=== PATIENT | male | born 1940 | race Caucasian/White ===

== ENCOUNTER 2017-08-27 06:32 | Inpatient (IN) ==
[~2017-08-27 06:32] MED LIST: Vancomycin 1,000 MG, Sodium Chloride IRRigation 1,000 ML IR ONE
[2017-08-27] MEDS ORDERED: CeFAZolin Syr 2,000MG/20 ML 2,000 MG/20 ML SYRINGE IVPB ONE (07:28)
--- NOTE | 2017-08-27 07:33 | History & Physical Report ---
Date of Encounter: 08/27/17 Time of Encounter: 07:28 24 Hour HP Update - Instructions Instructions: If the History and Physical is less than 30 days old and was completed prior to A.M. admission and or procedure and has NOT been updated on calendar day of procedure please complete this update prior to performing procedure. - Update Patient reports changes in Medical Condition: No Changes in examination, assessment, or condition: No Changes in Medication: No Preop tests/diagnostics Reviewed: Yes Surgery Remains Indicated: Yes Consent for Planned Operative Procedure(s) Verified: Yes - Pre-Operative Checklist Preoperative Checklist Indicated: Yes Prophylactic Antibiotic Ordered: Yes (vancomycin due to MRSA risk) Home Medications Include Beta Sarah: Yes Beta Sarah Taken Today (Day of Surgery): Yes Beta Sarah Taken Yesterday (Day Prior to Surgery): Yes Is VTE Prophylaxis Indicated?: Yes
--- NOTE | 2017-08-27 07:56 | Anesthesia Evaluation PreOp ---
Date of Encounter: 08/27/17 Time of Encounter: 07:53 - Past History Planned Operation: Left fem - pop Cardiac History: HTN, Hyperlipidemia, Cardiac Surgery (CABG x 5 2008) Pulmonary History: Former smoker, Asthma, Snore ROLFER History: Denies Any Significant HX Other Medical History: Diabetes Type II, GERD Anesthesia History: No Prior Anesthetic Complications, Past Anesthesia (CABG) Alcohol Use: none Drug use: none Medications and Allergies Aspirin [Lo-Dose Aspirin EC] 81 mg PO DAILY 07/01/17 [History] Atorvastatin Calcium [Lipitor] 40 mg PO DAILY 07/01/17 [History] Calcium Carbonate/Vitamin D3 [Calcium 600 + Vit D Softgel] 1 each PO DAILY 07/01 [History] Cetirizine HCl [Zyrtec] 10 mg PO DAILY 07/01/17 [History] Gabapentin [Neurontin] 300 mg PO BID 07/01/17 [History] Insulin ASPART [NovoLOG] 30 unit SQ HS 07/01/17 [History] Insulin DETEMIR [Levemir] 10 unit SQ DAILY 07/01/17 [History] Losartan [Cozaar] 12.5 mg PO BID 07/01/17 [History] Metoprolol [Lopressor] 25 mg PO DAILY 07/01/17 [History] Multivitamin [Multivitamins] 1 each PO DAILY 07/01/17 [History] Ranolazine [Ranexa] 500 mg PO BID 07/01/17 [History] Rivaroxaban [Xarelto] 15 mg PO DAILY 07/01/17 [History] Tramadol HCl [Ultram] 50 mg PO BID PRN 07/01/17 [History] Acetylcysteine 600 mg PO BID 08/27/17 [History] Isosorbide MONOnitrate (24 HR) 30 mg PO ONCE 08/27/17 [History] 3 Allergy/AdvReac Type Severity Reaction Status Date / Time clopidogrel [From Plavix] Allergy Swelling Verified 08/27/17 07:47 of Lip/Tongue/Throat codeine Allergy Swelling Verified 08/27/17 07:47 of Lip/Tongue/Throat - Meds/Allergy Pre-op Review Medications Reviewed: Yes Allergies Reviewed: Yes Beta Blockers on Current Med List: Yes Anesthesia Results - Labs Laboratory Tests 08/21/17 08/21/17 08/21/17 09:27 09:27 09:27 WBC Hgb Hct Plt Count PT 17.6 H INR 1.6 APTT 43.0 H Sodium 140 Potassium 4.5 Chloride 106 Carbon Dioxide 25 BUN 24 H Creatinine 1.98 H Est GFR (Non-Af Amer) 33 L Glucose 121 H Hemoglobin A1c 7.0 H 08/21/17 09:27 WBC 9.0 Hgb 15.4 Hct 46.8 Plt Count 276 PT INR APTT Sodium Potassium Chloride Carbon Dioxide BUN Creatinine Est GFR (Non-Af Amer) Glucose Hemoglobin A1c - Imaging EKG: report reviewed, image reviewed Additional studies: 07/01/17 angiogram Impressions: The bilateral renal arteies are patent. No hemodynamically significant aortic or iliac disease. Right popliteal artery occlusion. Right anterior tibial artery occlusion. Right tibioperoneal trunk artery occlusion. Right posterior tibial artery occlusion. Let superficial femoral artery occlusion with above knee reconstitution. No hemodynamically significant left tibial disease identified. No complications. Anesthesia Exam Vital Signs/O2 Sat/Glucose, Most Recent Temp Pulse Resp BP Pulse Ox 98.2 F 64 18 160/87 95 08/27/17 06:57 08/27/17 06:57 08/27/17 06:57 08/27/17 06:57 08/27/17 06:57 Blood Glucose* 85 Weight: 105 kg NPO (# of Hours): 8 - HEENT Pupil (Motor): Pupils equal Mallampati: II Denture Type: Upper: Complete, Lower: Complete Oral Opening: Greater than 3 - ROLFER LOC: Oriented ROLFER Motor: Normal RUE, Normal LUE, Normal RLE, Normal LLE, Normal Face ROLFER Sensory: Normal: RUE, LUE, RLE, LLE, Face - Cardiac Rhythm: Regular Murmur: None - Pulmonary Breath Sounds: bilateral Clear Respiratory Effort: Symmetrical Anesthesia Assess/Plan ASA Score: 3 Modified Buckner Scale for Level of Consciousness: Cooperative, oriented, and tranquil Anesthetic Plan: General Monitoring Plan: Standard Monitors, A-Line Recovery Plan: PACU
[2017-08-27] MEDS ORDERED: *HR* EPINEPHrine 1 MG/ML AMPUL ONE (08:09)
[2017-08-27] MEDS ORDERED: *HR* FentaNYL (PF) 100 MCG/2 ML VIAL ONE ×2 (08:09→10:05)
[2017-08-27] MEDS ORDERED: Lidocaine -MPF 2% 2 ML VIAL ONE (08:09)
[2017-08-27] MEDS ORDERED: *HR* Propofol 200 MG/20 ML VIAL IVP ONE (08:09)
[2017-08-27] MEDS ORDERED: Ondansetron 4 MG/2 ML VIAL ONE (08:09)
[2017-08-27] MEDS ORDERED: Famotidine 20 MG/2 ML VIAL IVP ONE (08:11)
[2017-08-27] MEDS: Ringers Solution, Lactated 1,000 ML IVC SCH ×2 (08:11→12:14)
[2017-08-27] MEDS ORDERED: Acetaminophen IV 1,000 MG/100 ML INFUS..BTL IVPB ONE (08:11)
[2017-08-27] MEDS ORDERED: *HR* Succinylcholine 200 MG/10 ML VIAL IVP ONE (08:12)
[2017-08-27] MEDS ORDERED: *HR* Rocuronium Bromide 50 MG/5 ML VIAL ONE (08:12)
[2017-08-27] MEDS ORDERED: Water for inj. (sterile) 10 ML IV ONE (08:15)
[2017-08-27] MEDS ORDERED: Lidocaine -MPF 4% 5 ML AMPUL ONE (08:15)
[2017-08-27] MEDS ORDERED: Heparin 1,000 UNITS/500 mL 500 ML ONE (08:18)
[2017-08-27] MEDS ORDERED: *HR* Midazolam HCl 2 MG/2 ML VIAL ONE (08:28)
[2017-08-27] MEDS ORDERED: Heparin 1,000 UNITS/500 mL 1,500 ML ONE (08:42)
[2017-08-27] MEDS ORDERED: EPHEDrine 50 MG/ML VIAL ONE (09:14)
[2017-08-27] MEDS ORDERED: *HR* Vasopressin 20 UNIT/ML VIAL ONE (09:32)
[2017-08-27] MEDS ORDERED: *HR* PHENYLEPHRINE 1,000 MCG/10 ML SYRINGE IVP ONE ×2 (09:34→11:05)
[2017-08-27] MEDS ORDERED: *HR* Heparin 5,000 UNIT/ML VIAL ONE (10:14)
[2017-08-27] MEDS ORDERED: *HR* FentaNYL (PF) 100 MCG/2 ML VIAL IVP PRN (10:47)
[2017-08-27] MEDS ORDERED: *HR* OxyCODONE Immed Rel 5 MG TABLET PO PRN ×2 (10:47→13:14)
[2017-08-27] MEDS ORDERED: Ondansetron 4 MG/2 ML VIAL IVP PRN ×2 (10:47→13:14)
--- NOTE | 2017-08-27 10:58 | Anesthesia Procedures ---
Date of Encounter: 08/27/17 Time of Encounter: 09:00 Procedures: Anesthesia - Arterial Line Consent obtained: written consent Time out performed: Yes Sedation: Versed (mg): 1 Sedation: Fentanyl (mcg): 50 Supplemental Oxygen via Nasal Cannula (L/min): 2 Local Anesthetic: Lidocaine 1% Size (Gauge): 20 Length (inches): 1 3/4 Technique Used: sterile prep, direct puncture technique Post-Procedure: dry sterile dressing placed Complications: none Site: Radial L
[2017-08-27] MEDS ORDERED: Neostigmine Methylsulfate 3 MG/3 ML SYRINGE ONE (11:02)
[2017-08-27] MEDS ORDERED: *HR* Labetalol 20 MG/4 ML SYRINGE IVP PRN ×2 (11:12→13:14)
--- NOTE | 2017-08-27 11:54 | Operative Note ---
Date of procedure: 08/27/17 Pre-op diagnosis: Peripheral vascular disease with disabling claudication Post-op diagnosis: same Procedure: Left common femoral to above-knee popliteal artery bypass with 6 mm Distaflo [place] PTFE graft Complications: None Anesthesia: ZACK, local Surgeon: Moises Hurtado Was there an periodicals library assistant present: No Estimated blood loss (cc): 100 Specimen: None Condition: stable Disposition: PACU Procedure in Detail: Indications: The patient is a 77-year-old male with a history of hypertension, diabetes, hyperlipidemia, coronary artery disease and morbid obesity. The patient was found have his peripheral vascular disease with severe disabling claudication of the bilateral lower extremities. He is found have a left superficial femoral artery occlusion. Revascularization was recommended to reduce his symptoms. Procedure: The patient was identified in the preoperative area. The risks, benefits, and alternatives of the procedure were discussed. All questions were answered. The patient was taken to the operating room and placed in supine position on the operating room table. After the induction of general endotracheal anesthesia, he was cleaned and draped in normal sterile fashion. An oblique incision was made over the left groin sharply. Hemostasis was obtained with electrocautery. Through a process of blunt, sharp, and electrocautery dissection, the left femoral vessels were dissected circumferentially and surrounded with vessel loops. An incision was made on the left medial distal thigh sharply. Hemostasis was obtained with electrocautery. Through a process of blunt, sharp, and electrocautery dissection, the left above-knee popliteal artery was dissected proximally and distally and surrounded with vessel loops. A graft was tunneled between the popliteal and femoral incisions. The patient received 5000 units of heparin intravenously. Additional heparin was given throughout the case to maintain adequate anticoagulation. The popliteal vessels were occluded and a longitudinal arteriotomy was made in the popliteal artery. The distal end of the graft was sutured in place with a running 6-0 Prolene, but not tied. Heparinized saline was infused into the lumen. Tension was applied to the femoral vessel loops. An arteriotomy was made in the common femoral artery and the graft was cut to fit the arteriotomy. The graft was anastamosed with a running 6-0 Prolene. The vessels were flushed through the graft and heparin was infused into the lumen. The graft was clamped with an atraumatic clamp. Thrombin and gelfoam were used at the proximal anastamosis. The distal arterial anastomosis was completed and prior to completing the closure, the popliteal vessels were flushed and reoccluded. Heparinized saline was infused into the lumen. The anastamosis was tied and then flow was restored. Polyphasic signals were noted distal to the distal anastomosis as well as at the posterior tibial artery. Wounds were irrigated with antibiotic-containing saline. Thrombin and gelfoam were used to aid in hemostasis. Platelet rich and platelet poor plasma were infused into the wounds. Meticulous hemostasis was obtained throughout the wound with electrocautery. Wounds were reapproximated with layers of 2-0 and 3-0 Vicryl. Skin was reapproximated with 3-0 Monocryl. Sterile dressing was applied. The patient was extubated and taken to recovery room in stable condition.
--- NOTE | 2017-08-27 12:36 | Anesthesia Evaluation Post Op ---
Date of Encounter: 08/27/17 Time of Encounter: 12:36 - Vital Signs Vital Signs: Vital Signs/O2 Sat/Glucose, Most Recent Temp Pulse Resp BP Pulse Ox 98.4 F 61 14 123/66 93 08/27/17 12:20 08/27/17 12:30 08/27/17 12:30 08/27/17 12:30 08/27/17 12:30 Blood Glucose* 98 - Lungs Lungs: Clear Ascult./Percussion - Airway Airway: Non-obstructed - Cardiovascular Regular Rate - Mental Status Mental Status: Alert & Oriented, Answers Appropriately - Pain Pain Scale: 3 - Nausea Vomiting Nausea Vomiting: Not Present - Hydration Hydration: Tolerates oral liquids - Discharge PostOp Status: Transfer Patient to floor
[2017-08-27] MEDS ORDERED: *HR* HYDROcodone/Acet 5/325 mg TABLET PO PRN (13:14)
[2017-08-27] MEDS ORDERED: *HR* Dextrose 50 % in Water (Syg) 50 ML SYRINGE IVP PRN (13:14)
[2017-08-27] MEDS ORDERED: D5% in Water 1,000 ML IVC PRN (13:14)
[2017-08-27] MEDS ORDERED: OXYCODONE Oral CONC 10 MG/0.5 ML ORAL.SYG SL PRN ×2 (13:14)
[2017-08-27] MEDS ORDERED: Dextrose Gel 15 GM/37.5 ML TUBE PO PRN ×2 (13:14)
[2017-08-27] MEDS ORDERED: Naloxone 0.4 MG/ML INJ IVP PRN (13:14)
[2017-08-27] MEDS ORDERED: 0.9 % Sodium Chloride 1,000 ML IVC SCH (13:14)
[2017-08-27] MEDS ORDERED: Acetaminophen 325 MG TABLET PO PRN (13:14)
[2017-08-27] MEDS: Insulin LISPRO 300 UNITS/3 ML VIAL SQ SCH ×2 (15:27→17:53)
[2017-08-27] MEDS: *HR* Metoprolol 5 MG/5 ML VIAL IVP SCH ×2 (15:27→17:53)
[2017-08-27] MEDS: Gabapentin 300 MG CAPSULE PO SCH (20:11)
[2017-08-27] MEDS: Ranolazine 500 MG TAB.ER.12H PO SCH (20:12)
[2017-08-27] MEDS ORDERED: *HR* Acetylcysteine 20% 600 MG/3 ML ORAL SYRINGE PO SCH (21:00)
[2017-08-27] MEDS ORDERED: Insulin LISPRO 300 UNITS/3 ML VIAL SQ SCH (21:00)
[2017-08-28] MEDS: *HR* Metoprolol 5 MG/5 ML VIAL IVP SCH ×2 (00:10→05:19)
[2017-08-28 03:57] LABS: Basophils # 0.1 K/mcL (0.0-0.2); Basophils % 0.5 %; Eosinophils # 0.1 K/mcL (0.0-0.6); Eosinophils % 0.9 %; Hematocrit 38.5 % (37.5-50.1); Immature Granulocytes % 0.3 % (0-4); Lymphocytes # 1.2 K/mcL (0.6-4.6); Lymphocytes % 12.7 %; Mean Corpuscular HGB Conc 32.7 g/dL (31.6-35.5); Mean Corpuscular Volume 94.8 fL (83.0-100.0); Mean Platelet Volume 10.5 fL (9.4-12.4); Monocytes # 0.9 K/mcL (0.0-1.3); Monocytes % 8.9 %; Neutrophils # 7.3 K/mcL (1.6-8.9); Platelet Count 222 K/mcL (140-400); Red Blood Count 4.06 M/mcL (4.19-5.50); Red Cell Distribution Width 12.5 % (11.5-14.5); Segmented Neutrophils % 76.7 %
[2017-08-28 04:02] LABS: Hemoglobin 12.6 g/dL (12.9-16.9)
[2017-08-28 04:13] LABS: Calcium 8.5 mg/dL (8.6-10.3); Potassium 4.9 mEq/L (3.5-5.1)
[2017-08-28] MEDS ORDERED: *HR* Heparin 5,000 UNIT/ML VIAL SQ SCH ×2 (06:00)
--- NOTE | 2017-08-28 07:37 | Discharge Summary ---
Orders not resulted at time of discharge: Pending orders 08/26/17 15:02 Red Blood Cells [BBK] Routine Date of Encounter: 08/28/17 Time of Encounter: 07:50 - Discharge Diagnosis (1) Atherosclerosis of [place] arteries of extremities with intermittent claudication, bilateral legs Status: Acute (2) Mixed hyperlipidemia Status: Acute (3) Chronic kidney disease, stage III (moderate) Status: Acute (4) Acute blood loss anemia Status: Acute - Hospital Course Hospital course: Mr. Stuart is a 77 year old male - Time Spent with Patient Total time spent providing and/or coordinating discharge services: - Discharge Medications Prescriptions: OxyCODONE/APAP 5/325 [Percocet 5/325 MG] 1 each PO Q6HR PRN 7 Days #25 tablet PRN Reason: Postoperative pain Home Medications: Aspirin [Lo-Dose Aspirin EC] 81 mg PO DAILY 07/01/17 [History] Atorvastatin Calcium [Lipitor] 40 mg PO DAILY 07/01/17 [History] Calcium Carbonate/Vitamin D3 [Calcium 600 + Vit D Softgel] 1 tab PO DAILY [History] Cetirizine HCl [Zyrtec] 10 mg PO DAILY 07/01/17 [History] Gabapentin [Neurontin] 300 mg PO BID 07/01/17 [History] Insulin ASPART [NovoLOG] 10 unit SQ 0800 07/01/17 [History] Insulin DETEMIR [Levemir] 30 unit SQ DAILY 07/01/17 [History] Losartan [Cozaar] 12.5 mg PO BID 07/01/17 [History] Metoprolol [Lopressor] 25 mg PO DAILY 07/01/17 [History] Multivitamin [Multivitamins] 1 each PO DAILY 07/01/17 [History] Ranolazine [Ranexa] 500 mg PO BID 07/01/17 [History] Rivaroxaban [Xarelto] 15 mg PO DAILY 07/01/17 [History] Tramadol HCl [Ultram] 50 mg PO BID PRN 07/01/17 [History] Acetaminophen [Tylenol] 325 mg PO Q6HR PRN 08/27/17 [History] Acetylcysteine [Z-Udihwa-k-Cysteine] 600 mg PO BID 08/27/17 [History] Insulin ASPART [NovoLOG] 10 unit SQ 1200 08/27/17 [History] Insulin ASPART [NovoLOG] 12 unit SQ 1700 08/27/17 [History] Isosorbide MONOnitrate (24 HR) [Imdur] 30 mg PO DAILY 08/27/17 [History] OxyCODONE/APAP 5/325 [Percocet 5/325 MG] 1 each PO Q6HR PRN 7 Days #25 tablet [Rx] Allergies/Adverse Reactions: 3 Allergy/AdvReac Type Severity Reaction Status Date / Time clopidogrel [From Plavix] Allergy Swelling Verified 08/27/17 19:56 of Lip/Tongue/Throat codeine Allergy Swelling Verified 08/27/17 19:56 of Lip/Tongue/Throat Date of admission: 08/27/17 13:01 Primary care physician: PCP ANUM Procedure(s) Performed: Left femoral to popliteal artery bypass graft. Discharging clinician: Moises Hurtado Anticipated date of discharge: 08/28/17 - Patient Status Disposition: Home, Self-Care Condition: Good Functional capacity at discharge: independent ambulation Overall status at discharge: patient is back to baseline - Discharge Instructions Follow Up With: Moises Hurtado MD [Partnered Physician] - 10/13/17 3:20 pm [place],PCP [Primary Care Provider] - 09/08/17 2:30 pm Additional Instructions: May remove bandages and shower on 08/29/2017. Wash wounds gently and pat to dry. Apply dry gauze to wounds daily for 7 days. No tub baths or swimming until 09/20/2017. Call [phone] with questions or concerns. - Diet and Activity Activity: increase activity as tolerated Diet: advance to your usual diet - VTE Documentation of Mechanical Device: Intermittent pneumatic compression device
[2017-08-28 07:51] VITALS: BP 165/92
[2017-08-28] MEDS: Gabapentin 300 MG CAPSULE PO SCH (08:12)
[2017-08-28] MEDS: Ranolazine 500 MG TAB.ER.12H PO SCH (08:13)
[2017-08-28] MEDS: Insulin LISPRO 300 UNITS/3 ML VIAL SQ SCH (08:13)
[2017-08-28] MEDS ORDERED: Loratadine 10 MG TABLET PO SCH (09:00)
[2017-08-28] MEDS ORDERED: Multivit/Ca/Min/Fe/FA 1 TAB TABLET PO SCH (09:00)
[2017-08-28] MEDS ORDERED: Aspirin Enteric Coated 81 MG Tablet PO SCH (09:00)
[2017-08-28] MEDS ORDERED: Isosorbide MONOnitrate (24 HR) 30 MG TAB.ER.24H PO SCH (09:00)
[2017-08-28] MEDS ORDERED: Cholecalciferol (D-3) 1,000 UNIT TABLET PO SCH (09:00)
== END 2017-08-28 10:19 | disposition home or self-care (01) | DRG 253 ==
LOC: SAMDAY 06:32 → 2NNU 13:01
PROVIDERS: ADMIT Surgery; ATTEND Surgery